=== PATIENT | female | born 1995 | race Caucasian/White ===

== ENCOUNTER 2023-07-21 01:56 | Emergency (ER) | payer MEDICAID, OTHER ==
--- NOTE | 2023-07-21 02:28 | ERPHSYRPT ---
- History of Present Illness Time Seen by Provider: 07/21/23 02:10 Source: patient, family Exam Limitations: no limitations Patient Subjective Stated Complaint: hives all over my body Triage Nursing Assessment: pt ambulated into ER without diff, mother at bedside. Pt c/o hives all over her body which began around 1am. Pt has red, blotchy hives all over: neck, back, chest, abd, arms and legs. Pt ate a raspberry brownie tonight whcih is something she has never eater before; however, has had these items individually and has never been allergic to either item. Pt denies any sob or difficulty breathing. Physician History: This is a 27-year-old white female patient who presents with hives on her scalp neck anterior and posterior torso that began, or at least noticed, approximately 1 AM this morning. The only thing that was different today was at work, approximate 3 PM, the patient did eat some type of raspberry pastry or dessert. She has never been allergic to what she did eat at that time.. At 1 AM this morning she noticed itching on her side and then her back of her torso in front of her torso and she looked in the mirror and there was hives present on her neck and her scalp was itching as well. She has not had any wheezing or difficulty breathing. She does not have any difficulty swallowing. She is not short of breath. She has no chest pain. She has had no nausea or vomiting symptoms. She has never had anything like this before. She has no known allergies to drugs or any other environmental entities. Mom provided independent, additional history. There is been no change in the soaps being used at home. There is been no new pets. Timing/Duration: today Quality: itchy Severity: moderate Location: scalp, face, torso Possible Causes: no cause identified Associated Symptoms: rash Allergies/Adverse Reactions: No Known Drug Allergies Allergy (Unverified 07/21/23 02:15) Home Medications: Acyclovir 400 mg PO DAILY 07/21/23 [History] Hx Tetanus, Diphtheria Vaccination/Date Given: Yes Hx Influenza Vaccination/Date Given: No Hx Pneumococcal Vaccination/Date Given: No Immunizations Up to Date: No Travel Risk - International Travel Have you traveled outside of the country in past 3 weeks: No - Coronavirus Screening Are you exhibiting any of the following symptoms?: No Close contact with a COVID-19 positive Pt in past 14-21 Days: No - Vaccine Status Have you recieved a Covid-19 vaccination: No - Review of Systems Constitutional: No Symptoms Eyes: No Symptoms Ears, Nose, & Throat: No Symptoms Respiratory: No Symptoms Cardiac: No Symptoms Abdominal/Gastrointestinal: No Symptoms Genitourinary Symptoms: No Symptoms Musculoskeletal: No Symptoms Skin: Rash (Hives anterior posterior torso neck and scalp) Neurological: No Symptoms Psychological: No Symptoms Endocrine: No Symptoms Hematologic/Lymphatic: No Symptoms Immunological/Allergic: No Symptoms All Other Systems: Reviewed and Negative - Past Medical History Pertinent Past Medical History: Yes Other Medical History: hsv 2 - Past Surgical History Past Surgical History: No - Social History Smoking Status: Never smoker Exposure to second hand smoke: Yes Drug Use: none Patient Lives Alone: No - Female History Hx Last Menstrual Period: last week Hx Now: No - Nursing Vital Signs Nursing Vital Signs: Initial Vital Signs Temperature 98.6 F 07/21/23 02:03 Pulse Rate 82 07/21/23 02:03 Respiratory Rate 16 07/21/23 02:03 Blood Pressure 157/92 07/21/23 02:03 O2 Sat by Pulse Oximetry 100 07/21/23 02:03 Pain Scale Pain Intensity 0 - Physical Exam General Appearance: no apparent distress, alert, anxiety Eye Exam: PERRL/EOMI, eyes nml inspection Ears, Nose, Throat Exam: normal ENT inspection, moist mucous membranes Neck Exam: normal inspection, non-tender, supple, full range of motion Respiratory Exam: normal breath sounds, lungs clear, airway intact, No chest tenderness, No respiratory distress Cardiovascular Exam: regular rate/rhythm, normal heart sounds, normal peripheral pulses Gastrointestinal/Abdomen Exam: soft, normal bowel sounds, No tenderness Pelvic Exam: not done Rectal Exam: not done Back Exam: normal inspection, normal range of motion, No CVA tenderness, No vertebral tenderness Extremity Exam: normal inspection, normal range of motion, pelvis stable Neurologic Exam: alert, oriented x 3, cooperative, 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 Level of complexity in the workup performed is based on review the patient's past medical history, review of the patient's medication list, review the patient's drug allergy list, history of present illness and physical findings on examination. No laboratory radiographic studies are necessary in this patient. Will provide the patient with 20 mg oral prednisone, 40 mg of oral Pepcid and 50 mg of oral Benadryl. Counseled pt/family regarding: diagnosis, need for follow-up Medical Desision Making - Independent Historian Additional History obtained from: Mother - Diagnostic Testing Diagnostic test were ordered, analyzed, and reviewed by me: No - Risk of complications The pt has a mod risk of morbidity or mortality based on: Need for prescription drug management - Departure Departure Disposition: Home Clinical Impression: Hives, Allergic reaction Condition: Stable Critical Care Time: No Referrals: ALFONSO ARCINIEGA NP [Primary Care Provider] - Follow up/PCP as directed Additional Instructions: Take Benadryl 50 mg orally every 8 hours for the next 4 days. Follow-up with your primary care provider today, 07/21/2023, by phone to make arrangement for follow-up appointment for further evaluation management. Take your other prescription medications as prescribed. Prescriptions: Prednisone 10 mg [Deltasone 10 mg] 10 mg PO TID #12 tablet Famotidine 20 mg [Pepcid 20 MG] 20 mg PO DAILY #5 tablet
[2023-07-21] MEDS ORDERED: BENADRYL 25 MG CAPSULE PO ONE (02:29)
[2023-07-21] MEDS ORDERED: Pepcid 20 MG PO ONE (02:29)
[2023-07-21] MEDS ORDERED: DELTASONE 20 MG PO ONE (02:30)
[2023-07-21] MEDS ORDERED: DELTASONE 20 MG ONE (02:39)
[2023-07-21] MEDS ORDERED: BENADRYL 25 MG CAPSULE ONE (02:39)
[2023-07-21] MEDS ORDERED: Pepcid 20 MG ONE (02:39)
[2023-07-21 02:50] VITALS: TEMP 98.6
[2023-07-21 04:02] VITALS: BP 140/75; PULSE 72; RESP 16; O2SAT 97
== END 2023-07-21 04:11 | disposition home or self-care (01) ==
LOC: ED 01:56
DX: T78.40XA Allergy, unspecified, initial encounter (principal); L50.0 Allergic urticaria; Z79.52 Long term (current) use of systemic steroids; Z79.899 Other long term (current) drug therapy; Z28.310 Unvaccinated for COVID-19
CPT/HCPCS: 99283; A9270-GY

== ENCOUNTER 2023-10-08 11:20 | Emergency (ER) | payer OTHER ==
--- NOTE | 2023-10-08 11:34 | ERPHSYRPT ---
- History of Present Illness Time Seen by Provider: 10/08/23 11:34 Source: patient Exam Limitations: no limitations Physician History: This is a 27-year-old white female patient who was seen at [facility] and diagnosed with tonsillitis. She was evaluated 2 days ago and had negative strep, negative viral studies as well. Patient's symptoms of sore throat and painful swelling began 5 days ago. 2 days ago, patient was prescribed amoxicillin but no other medications. Patient states her symptoms are no better after approximately 3 doses of the antibiotics. She denies chest pain. She denies cough. She denies shortness of breath. She has no abdominal pain. She denies nausea vomiting and diarrhea symptoms. Timing/Duration: day(s) (5), worse Cough Quality/Degree: no cough Possible Cause: occasional episodes Modifying Factors: Improves With: other (Worsens with swallowing) Associated Symptoms: sore throat Allergies/Adverse Reactions: No Known Drug Allergies Allergy (Verified 10/08/23 11:27) Home Medications: Acyclovir 400 mg PO DAILY 07/21/23 [History] Amoxicillin 500 mg PO BID 10/08/23 [History] Hx Tetanus, Diphtheria Vaccination/Date Given: Yes Hx Influenza Vaccination/Date Given: No Hx Pneumococcal Vaccination/Date Given: No Travel Risk - International Travel Have you traveled outside of the country in past 3 weeks: No - Coronavirus Screening Are you exhibiting any of the following symptoms?: No Close contact with a COVID-19 positive Pt in past 14-21 Days: No - Vaccine Status Have you recieved a Covid-19 vaccination: No - Review of Systems Constitutional: No Symptoms Eyes: No Symptoms Ears, Nose, & Throat: Throat Pain Respiratory: No Symptoms Cardiac: No Symptoms Abdominal/Gastrointestinal: No Symptoms Genitourinary Symptoms: No Symptoms Musculoskeletal: No Symptoms Skin: No Symptoms Neurological: No Symptoms Psychological: No Symptoms Endocrine: No Symptoms Hematologic/Lymphatic: No Symptoms Immunological/Allergic: No Symptoms All Other Systems: Reviewed and Negative - Past Medical History Pertinent Past Medical History: Yes Other Medical History: hsv 2 - Past Surgical History Past Surgical History: No - Social History Smoking Status: Never smoker Exposure to second hand smoke: Yes Drug Use: none Patient Lives Alone: No - Physical Exam General Appearance: no apparent distress, alert, anxiety Eye Exam: PERRL/EOMI, eyes nml inspection Ears, Nose, Throat Exam: moist mucous membranes, tonsillar exudate (Bilateral right side worse than left) Neck Exam: normal inspection, non-tender, supple, full range of motion Respiratory Exam: normal breath sounds, lungs clear, airway intact, No chest tenderness, No respiratory distress Cardiovascular Exam: regular rate/rhythm, normal heart sounds, normal peripheral pulses Gastrointestinal/Abdomen Exam: soft, No tenderness Pelvic Exam: not done Rectal Exam: not done Back Exam: normal inspection, normal range of motion, No CVA tenderness, No vertebral tenderness Extremity Exam: normal inspection, normal range of motion, pelvis stable Neurologic Exam: alert, oriented x 3, cooperative, 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 The level of complexity in the workup performed is based on review of the patient's past medical history, review of the patient's medication list, review of the patient's drug allergy list, history of present illness and physical findings on examination. Workup in this patient does not require laboratory radiographic studies. I do not think it is necessary to repeat strep test and viral studies. Patient is already taking amoxicillin. We will provide her with an injection of 1 g of Rocephin intramuscularly as well as 125 mg intramuscular Solu-Medrol injection. We will also send prednisone and hydrocodone elixir prescription remotely to her pharmacy Blood Culture(s) Obtained: No Antibiotics given: Yes Counseled pt/family regarding: diagnosis, need for follow-up Medical Desision Making - Diagnostic Testing Diagnostic test were ordered, analyzed, and reviewed by me: No - Risk of complications The pt has a mod risk of morbidity or mortality based on: Need for prescription drug management - Departure Departure Disposition: Home Clinical Impression: Tonsillitis Condition: Stable Critical Care Time: No Additional Instructions: Drink plenty of cold liquids. May gargle with salt water as discussed. You may also benefit from using hard candy to help keep your throat moistened. Take your amoxicillin/antibiotics as prescribed. Follow-up with your primary care provider for further evaluation and management. Prescriptions: Prednisone 10 mg [Deltasone 10 mg] 10 mg PO TID #12 tablet Hydrocodone/Acetaminophen [Hydrocodone-Acetamn 7.5-325/15] 10 ml PO Q8H PRN #120 ml MDD 30 ml PRN Reason: Cough
[2023-10-08 11:43] VITALS: RESP 18; TEMP 98.7; O2SAT 99
[2023-10-08] MEDS ORDERED: Sterile H2O 10 ml IJ ONE (11:46)
[2023-10-08] MEDS ORDERED: Rocephin 1000 MG INJ ONE (11:46)
[2023-10-08] MEDS ORDERED: solu-MEDROL ONE (11:46)
[2023-10-08] MEDS ORDERED: XYLOCAINE 1% HCL 20 ML MDV ONE (11:46)
[2023-10-08] MEDS: solu-MEDROL 125 MG, Sterile H2O 10 ml 2 ML IM ONE (11:52)
[2023-10-08] MEDS: Rocephin 1000 MG INJ IM ONE (11:53)
[2023-10-08 12:03] VITALS: BP 130/81; PULSE 93
== END 2023-10-08 12:00 | disposition home or self-care (01) ==
LOC: ED 11:20
DX: J03.90 Acute tonsillitis, unspecified (principal); Z79.52 Long term (current) use of systemic steroids; Z79.891 Long term (current) use of opiate analgesic; Z79.899 Other long term (current) drug therapy; Z28.310 Unvaccinated for COVID-19
CPT/HCPCS: 96372; 99283; J0696; J2930

== ENCOUNTER 2023-10-14 22:24 | Emergency (ER) | payer OTHER ==
[2023-10-14 22:30] VITALS: TEMP 99.2
--- NOTE | 2023-10-14 22:34 | ERPHSYRPT ---
- History of Present Illness Time Seen by Provider: 10/14/23 22:33 Exam Limitations: no limitations Physician History: 27-year-old female presents to emergency department for evaluation of intermit tent chest pain. Chest pain started at 9:00 this morning. Patient thought it was GERD. Patient took a Pepcid and it did not improve. She became concerned and presented to our ED. Upon arrival to our ED patient had no active chest pain. No nausea vomiting or diaphoresis. Symptoms been present more mild to moderate in intensity. Patient denies a history of the same. She voices no other complaints or concerns at this time. Portions of this note were created with voice recognition technology. There may be grammatical, spelling, punctuation or sound alike errors Timing/Duration: today Activities at Onset: none Quality: burning Location: substernal Chest Pain Radiation: no radiation Severity of Pain-Max: moderate Severity of Pain-Current: mild Modifying Factors: Improves With: nothing Associated Symptoms: denies symptoms Prior Chest Pain/Cardiac Workup: no prior chest pain Nitro Today/Relief: no nitro taken today Aspirin Treatment Today: no aspirin today Allergies/Adverse Reactions: No Known Drug Allergies Allergy (Verified 10/14/23 22:39) Home Medications: Acyclovir 400 mg PO DAILY 07/21/23 [History] Norgestimate-Ethinyl Estradiol [Sprintec 28 Day Tablet] 1 tab PO DAILY 10/14/23 [History] Hx Tetanus, Diphtheria Vaccination/Date Given: Yes Hx Influenza Vaccination/Date Given: No Hx Pneumococcal Vaccination/Date Given: No Travel Risk - Vaccine Status Have you recieved a Covid-19 vaccination: No - Review of Systems Constitutional: No Symptoms, No Fever, No Chills Eyes: No Symptoms Ears, Nose, & Throat: No Symptoms Respiratory: No Symptoms, No Cough, No Dyspnea Cardiac: No Symptoms, No Chest Pain, No Edema, No Syncope Abdominal/Gastrointestinal: No Symptoms, No Abdominal Pain, No Nausea, No Vomiting, No Diarrhea Genitourinary Symptoms: No Symptoms, No Dysuria Musculoskeletal: No Symptoms, No Back Pain, No Neck Pain Skin: No Symptoms, No Rash Neurological: No Symptoms, No Dizziness, No Focal Weakness, No Sensory Changes Psychological: No Symptoms Endocrine: No Symptoms Hematologic/Lymphatic: No Symptoms Immunological/Allergic: No Symptoms All Other Systems: Reviewed and Negative - Past Medical History Pertinent Past Medical History: Yes Other Medical History: hsv 2 - Past Surgical History Past Surgical History: No - Social History Smoking Status: Never smoker Exposure to second hand smoke: Yes Drug Use: none Patient Lives Alone: No - Nursing Vital Signs Nursing Vital Signs: Initial Vital Signs Temperature 99.2 F 10/14/23 22:29 Pulse Rate 91 H 10/14/23 22:29 Respiratory Rate 17 10/14/23 22:29 Blood Pressure 143/106 10/14/23 22:29 O2 Sat by Pulse Oximetry 99 10/14/23 22:29 Pain Scale Pain Intensity 0 - Physical Exam General Appearance: no apparent distress, alert Eye Exam: PERRL/EOMI, eyes nml inspection Ears, Nose, Throat Exam: normal ENT inspection, moist mucous membranes Neck Exam: normal inspection, non-tender, supple, full range of motion Respiratory Exam: normal breath sounds, lungs clear, airway intact, No respiratory distress Cardiovascular Exam: regular rate/rhythm, normal heart sounds, normal peripheral pulses Gastrointestinal/Abdomen Exam: soft, No tenderness, No mass Back Exam: normal inspection, No CVA tenderness, No vertebral tenderness Extremity Exam: normal inspection, normal range of motion Neurologic Exam: alert, oriented x 3, cooperative, normal mood/affect, sensation nml, No motor deficits Skin Exam: normal color, warm, dry SpO2 Interpretation: normal SpO2: 99 O2 Delivery: Room Air - Course Nursing assessment & vital signs reviewed: Yes EKG Interpreted by Me: RATE (73), Sinus Rhythm, NORMAL AXIS, NORMAL INTERVALS Ordered Tests: Active Orders 24 hr Category Date Time Status Stationary [employer]man STAT Care 10/14/23 22:32 Active EKG-ER Only STAT Care 10/14/23 22:31 Active IV Insertion STAT Care 10/14/23 22:31 Active Pulse Oximetry (ED) STAT Care 10/14/23 22:31 Active CHEST WITH CONTRAST [CT] Stat Exams 10/14/23 23:16 Completed CBC W DIFF Stat Lab 10/14/23 22:45 Completed CMP Stat Lab 10/14/23 22:45 Completed D-DIMER QUANTITATIVE Stat Lab 10/14/23 22:45 Completed HCG QUALITATIVE, URINE Stat Lab 10/14/23 22:34 Completed TROPONIN Q4H Lab 10/14/23 22:45 Completed TROPONIN Q4H Lab 10/15/23 01:10 Completed TROPONIN Q4H Lab 10/15/23 06:45 Ordered UA W/RFX UR CULTURE Stat Lab 10/14/23 22:34 Completed Medication Summary Discontinued Medications Generic Name Dose Route Start Last Admin Trade Name Bonnie PRN Reason Stop Dose Admin Al Hydrox/Mg Hydrox/Simethicone Confirm 10/15/23 01:31 Mag Hydrox/Al Hydrox/Simeth 30 Ml Udcup Administered 10/15/23 01:32 Dose 30 ml .ROUTE .STK-MED ONE Lidocaine HCl Confirm 10/15/23 01:31 Lidocaine Hcl 2% Viscous 15 Ml Udcup Administered 10/15/23 01:32 Dose 15 ml .ROUTE .STK-MED ONE Magnesium Hydroxide 45 ml 10/15/23 01:27 10/15/23 01:34 Mag Hydrx/Alum Hyd/Simeth/Lido 45 Ml Bottle PO 10/15/23 01:28 45 ml STAT ONE Administration Pantoprazole Sodium 40 mg 10/15/23 01:27 10/15/23 01:35 Pantoprazole 40 Mg Vial IV 10/15/23 01:28 40 mg STAT ONE Administration Pantoprazole Sodium Confirm 10/15/23 01:31 Pantoprazole 40 Mg Vial Administered 10/15/23 01:32 Dose 40 mg IV .STK-MED ONE Lab/Rad Data: Laboratory Result Diagrams 10/14/23 22:45 10/14/23 22:45 Laboratory Results 10/15/23 10/14/23 10/14/23 Range/Units 01:10 22:45 22:45 WBC (4.0-10.5) x10^3/uL RBC (4.1-5.4) x10^6/uL Hgb (12.0-16.0) g/dL Hct (35-47) % MCV (78-100) fL MCH (26-32) pg MCHC (32-36) g/dL RDW (11.5-14.0) % Plt Count (150-450) x10^3/uL MPV (7.5-11.0) fL Gran % (36.0-66.0) % Immature Gran % (Auto) (0.00-0.4) % Nucleat RBC Rel Count (0.00-0.1) % Eos # (Auto) (0-0.5) x10^3/uL Immature Gran # (Auto) (0.00-0.03) x10^3u/L Absolute Lymphs (auto) (1.0-4.6) x10^3/uL Absolute Monos (auto) (0.0-1.3) x10^3/uL Absolute Nucleated RBC (0.00-0.01) x10^3u/L Lymphocytes % (24.0-44.0) % Monocytes % (0.0-12.0) % Eosinophils % (0.00-5.0) % Basophils % (0.0-0.4) % Absolute Granulocytes (1.4-6.9) x10^3/uL Basophils # (0-0.4) x10^3/uL D-Dimer 1.81 H* (0.0-0.50) mg/L Sodium (137-145) mmol/L Potassium (3.5-5.1) mmol/L Chloride (98-107) mmol/L Carbon Dioxide (22-30) mmol/L Anion Gap (5-15) MEQ/L BUN (7-17) mg/dL Creatinine (0.52-1.04) mg/dL Estimated GFR ML/MIN Glucose (74-106) mg/dL Calcium (8.4-10.2) mg/dL Total Bilirubin (0.2-1.3) mg/dL AST (14-36) U/L ALT (0-35) U/L Alkaline Phosphatase (38-126) U/L Troponin I < 0.012 < 0.012 (0.000-0.034) ng/mL Serum Total Protein (6.3-8.2) g/dL Albumin (3.5-5.0) g/dL Urine Color (Yellow) Urine Appearance (Clear) Urine pH (4.6-8.0) Ur Specific Carlton (1.005-1.030) Urine Protein (Negative) Urine Glucose (UA) (Negative) mg/dL Urine Ketones (Negative) Urine Blood (Negative) Urine Nitrite (Negative) Urine Bilirubin (Negative) Urine Urobilinogen (0.2) mg/dL Ur Leukocyte Esterase (Negative) U Hyaline Cast (Auto) (0-2) /LPF Urine Microscopic RBC (0-5) /HPF Urine Microscopic WBC (0-5) /HPF Ur Epithelial Cells (None Seen) /HPF Urine Bacteria (None Seen) /HPF Urine Culture Reflexed (NO) Urine HCG, Qual (NEGATIVE) Slides for Path Review 10/14/23 10/14/23 10/14/23 Range/Units 22:45 22:45 22:34 WBC 9.8 (4.0-10.5) x10^3/uL RBC 4.93 (4.1-5.4) x10^6/uL Hgb 14.8 (12.0-16.0) g/dL Hct 44.1 (35-47) % MCV 89.5 (78-100) fL MCH 30.0 (26-32) pg MCHC 33.6 (32-36) g/dL RDW 12.3 (11.5-14.0) % Plt Count 424 (150-450) x10^3/uL MPV 9.4 (7.5-11.0) fL Gran % 31.1 L (36.0-66.0) % Immature Gran % (Auto) 0.8 H (0.00-0.4) % Nucleat RBC Rel Count 0.0 (0.00-0.1) % Eos # (Auto) 0.23 (0-0.5) x10^3/uL Immature Gran # (Auto) 0.08 H (0.00-0.03) x10^3u/L Absolute Lymphs (auto) 5.60 H (1.0-4.6) x10^3/uL Absolute Monos (auto) 0.74 (0.0-1.3) x10^3/uL Absolute Nucleated RBC 0.00 (0.00-0.01) x10^3u/L Lymphocytes % 57.4 H (24.0-44.0) % Monocytes % 7.6 (0.0-12.0) % Eosinophils % 2.4 (0.00-5.0) % Basophils % 0.7 (0.0-0.4) % Absolute Granulocytes 3.03 (1.4-6.9) x10^3/uL Basophils # 0.07 (0-0.4) x10^3/uL D-Dimer (0.0-0.50) mg/L Sodium 138 (137-145) mmol/L Potassium 3.8 (3.5-5.1) mmol/L Chloride 99 (98-107) mmol/L Carbon Dioxide 28 (22-30) mmol/L Anion Gap 14.1 (5-15) MEQ/L BUN 13 (7-17) mg/dL Creatinine 0.78 (0.52-1.04) mg/dL Estimated GFR 108.0 ML/MIN Glucose 112 H (74-106) mg/dL Calcium 9.7 (8.4-10.2) mg/dL Total Bilirubin 0.60 (0.2-1.3) mg/dL AST 35 (14-36) U/L ALT 87 H (0-35) U/L Alkaline Phosphatase 105 (38-126) U/L Troponin I (0.000-0.034) ng/mL Serum Total Protein 8.2 (6.3-8.2) g/dL Albumin 4.6 (3.5-5.0) g/dL Urine Color (Yellow) Urine Appearance (Clear) Urine pH (4.6-8.0) Ur Specific Carlton (1.005-1.030) Urine Protein (Negative) Urine Glucose (UA) (Negative) mg/dL Urine Ketones (Negative) Urine Blood (Negative) Urine Nitrite (Negative) Urine Bilirubin (Negative) Urine Urobilinogen (0.2) mg/dL Ur Leukocyte Esterase (Negative) U Hyaline Cast (Auto) (0-2) /LPF Urine Microscopic RBC (0-5) /HPF Urine Microscopic WBC (0-5) /HPF Ur Epithelial Cells (None Seen) /HPF Urine Bacteria (None Seen) /HPF Urine Culture Reflexed (NO) Urine HCG, Qual NEGATIVE (NEGATIVE) Slides for Path Review YES 10/14/23 Range/Units 22:34 WBC (4.0-10.5) x10^3/uL RBC (4.1-5.4) x10^6/uL Hgb (12.0-16.0) g/dL Hct (35-47) % MCV (78-100) fL MCH (26-32) pg MCHC (32-36) g/dL RDW (11.5-14.0) % Plt Count (150-450) x10^3/uL MPV (7.5-11.0) fL Gran % (36.0-66.0) % Immature Gran % (Auto) (0.00-0.4) % Nucleat RBC Rel Count (0.00-0.1) % Eos # (Auto) (0-0.5) x10^3/uL Immature Gran # (Auto) (0.00-0.03) x10^3u/L Absolute Lymphs (auto) (1.0-4.6) x10^3/uL Absolute Monos (auto) (0.0-1.3) x10^3/uL Absolute Nucleated RBC (0.00-0.01) x10^3u/L Lymphocytes % (24.0-44.0) % Monocytes % (0.0-12.0) % Eosinophils % (0.00-5.0) % Basophils % (0.0-0.4) % Absolute Granulocytes (1.4-6.9) x10^3/uL Basophils # (0-0.4) x10^3/uL D-Dimer (0.0-0.50) mg/L Sodium (137-145) mmol/L Potassium (3.5-5.1) mmol/L Chloride (98-107) mmol/L Carbon Dioxide (22-30) mmol/L Anion Gap (5-15) MEQ/L BUN (7-17) mg/dL Creatinine (0.52-1.04) mg/dL Estimated GFR ML/MIN Glucose (74-106) mg/dL Calcium (8.4-10.2) mg/dL Total Bilirubin (0.2-1.3) mg/dL AST (14-36) U/L ALT (0-35) U/L Alkaline Phosphatase (38-126) U/L Troponin I (0.000-0.034) ng/mL Serum Total Protein (6.3-8.2) g/dL Albumin (3.5-5.0) g/dL Urine Color Yellow (Yellow) Urine Appearance Clear (Clear) Urine pH 6.5 (4.6-8.0) Ur Specific Carlton 1.010 (1.005-1.030) Urine Protein Negative (Negative) Urine Glucose (UA) Negative (Negative) mg/dL Urine Ketones Negative (Negative) Urine Blood Moderate A (Negative) Urine Nitrite Negative (Negative) Urine Bilirubin Negative (Negative) Urine Urobilinogen 0.2 (0.2) mg/dL Ur Leukocyte Esterase Negative (Negative) U Hyaline Cast (Auto) NONE SEEN (0-2) /LPF Urine Microscopic RBC 51-100 A (0-5) /HPF Urine Microscopic WBC 0-2 (0-5) /HPF Ur Epithelial Cells None Seen (None Seen) /HPF Urine Bacteria None Seen (None Seen) /HPF Urine Culture Reflexed NO (NO) Urine HCG, Qual (NEGATIVE) Slides for Path Review - Progress Progress: improved Air Movement: good Progress Note: Some hematuria observed in urinalysis has however patient currently on her menstrual cycle this is likely contamination. Otherwise no UTI observed on today's urinalysis. 10/15/23 01:24 Heart score 0 27-year-old female presents to our ED for evaluation of intermittent substernal chest pain. Patient has no significant cardiac risk factors. Physical exam nonremarkable. No active chest pain upon arrival. D-dimer positive. Patient c urrently on her menstrual period. CTA chest negative. There are some hematuria in her urine however this is likely contamination from menstrual flow. Complexity problem addressed is moderate acute complicated No critical care time Complex of data reviewed and analyzed is moderate. Test ordered test reviewed. Results analyzed and correlated clinically with history and physical examination . Risk of complication and or risk morbidity/mortality of patient management is moderate. A prescription for Protonix forwarded to patient's pharmacy Vital stable. Time spent to discharge patient is approximately 20 minutes. Plan of care established for shared decision making. No social determinants of health present impede follow-up. Patient reassessed. She remains pain-free. She agrees to follow-up with primary care doctor within 48 hours for evaluation. Portions of this note were created with voice recognition technology. There may be grammatical, spelling, punctuation or sound alike errors 10/15/23 02:06 Blood Culture(s) Obtained: No Antibiotics given: No Counseled pt/family regarding: lab results, diagnosis, need for follow-up, rad results - Departure Departure Disposition: Home Clinical Impression: Chest pain, Lung nodule Condition: Stable Critical Care Time: No Referrals: PHILLY BERNAL, [employer]PER[employer] MANAGER [Primary Care Provider] - Follow up/PCP as directed Additional Instructions: Please follow-up with your primary care doctor within 48 hours for evaluation. Discharge/Care Plan DELMER JULIEN was seen on 10/15/23 in the Emergency Room. The patient was counseled regarding Diagnosis,Lab results, Imaging studies, need for follow up and when to return to the Emergency Room. Prescriptions given: Discharge Note I have spoken with the patient and/or caregivers. I have explained the patient's condition, diagnosis and treatment plan based on the information available to me at this time. I have answered the patient's and/or caregiver's questions and addressed any concerns. The patient and/or caregivers have as good understanding of the patient's diagnosis, condition and treatment plan as can be expected at this point. The vital signs have been stable. The patient's condition is stable and appropriate for discharge from the emergency department. The patient will pursue further outpatient evaluation with the primary care physician or other designated or consulting physician as outlined in the dis charge instructions. The patient and/or caregivers are agreeable to this plan of care and follow-up instructions have been explained in detail. The patient and/or caregivers have received these instruction. The patient/and or caregivers are aware that any significant change in condition or worsening of symptoms should prompt an immediate return to this or the closest emergency department or call 911. Prescriptions: PANTOPRAZOLE 40 mg Tablet [Protonix 40MG Tablet] 40 mg PO DAILY 14 Days #14 tab
[2023-10-14 22:40] LABS: HCG URINE TEST NEGATIVE (NEGATIVE)
[2023-10-14 22:44] LABS: Appearance Clear (Clear); Bacteria None Seen /HPF (None Seen); Bilirubin Negative (Negative); Blood Moderate (Negative); Epithelial Cells None Seen /HPF (None Seen); Glucose, Urine Negative (Negative); Hyaline Casts NONE SEEN /LPF (0-2); Ketones Negative (Negative); Leukocyte Esterase Negative (Negative); Nitrite Negative (Negative); Ph 6.5 (4.6-8.0); Protein,Urine Dip Negative (Negative); RBC 51-100 /HPF (0-5); Urobilinogen 0.2 mg/dL (0.2); WBC 0-2 /HPF (0-5)
[2023-10-14 22:51] LABS: ADD URINE CULTURE? NO (NO)
[2023-10-14 22:51] LABS: Absolute Neutrophil Ct (ANC) 3.03 x10^3/uL (1.4-6.9); BASOPHIL % 0.7 % (0.0-0.4); Basophil (Absolute #) 0.07 x10^3/uL (0-0.4); Eosinophil % 2.4 % (0.00-5.0); Eosinophil (Absolute #) 0.23 x10^3/uL (0-0.5); Hematocrit 44.1 % (35-47); Hemoglobin 14.8 g/dL (12.0-16.0); IMMATURE GRAN # 0.08 x10^3u/L (0.00-0.03); IMMATURE GRAN % 0.8 % (0.00-0.4); Lymphocytes % 57.4 % (24.0-44.0); Mean Cell Volume 89.5 fL (78-100); Mean Corpuscular Hgb Concent. 33.6 g/dL (32-36); Mean Platelet Volume 9.4 fL (7.5-11.0); Monocyte (Absolute #) 0.74 x10^3/uL (0.0-1.3); Monocytes % 7.6 % (0.0-12.0); Neutrophil % 31.1 % (36.0-66.0); Platelet Count 424 x10^3/uL (150-450); Red Blood Count 4.93 x10^6/uL (4.1-5.4); Red Cell Distribution Width 12.3 % (11.5-14.0); White Blood Count 9.8 x10^3/uL (4.0-10.5)
[2023-10-14 23:06] LABS: ALBUMIN 4.6 g/dL (3.5-5.0); ANION GAP 14.1 MEQ/L (5-15); BILIRUBIN,TOTAL 0.6 mg/dL (0.2-1.3); Calcium 9.7 mg/dL (8.4-10.2); Creatinine 1 0.78 mg/dL (0.52-1.04); Potassium 3.8 mmol/L (3.5-5.1); Total Protein 8.2 g/dL (6.3-8.2)
--- NOTE | 2023-10-15 00:39 | XRAY ---
CLINICAL HISTORY: pain TECHNIQUE: Contiguous axial CT images of the chest were acquired with intravenous contrast following PE protocol. Coronal and sagittal reconstructions were also obtained. COMPARISON: None. FINDINGS: The main pulmonary trunk, right and left pulmonary arteries with the ascending and descending branches are normal. The segmental branches are normal in caliber and show good contrast opacification with no evidence of filling defect/thrombosis. The aortic arch and visualized ascending aorta and descending aorta are normal. 6mm and 1.5mm calcified nodules are seen in apical segment of the right upper lobe. Bilateral lung smith are normal in translucency and markings otherwise. No significant mediastinal lymphadenopathy. No evidence of pleural/pericardial effusion. Heart size appears normal. No significant bony abnormality is detected. Scanned upper abdomen appears unremarkable. IMPRESSION: 1. Unremarkable CT pulmonary angiography, no evidence of acute thromboembolism 2. Calcified nodules in right apex, no follow up is required. Electronically Signed by: Mario Devine MD. (10/15/2023 00:35:03 EST)
[2023-10-15 01:29] VITALS: O2SAT 99
[2023-10-15 01:29] LABS: Slide Review 1 YES
[2023-10-15] MEDS ORDERED: XYLOCAINE VISCOUS 2% 15 ML CUP ONE (01:31)
[2023-10-15] MEDS ORDERED: MAALOX ES 30 ML UNIT DOSE ONE (01:31)
[2023-10-15] MEDS ORDERED: PROTONIX 40 MG IV IV ONE (01:31)
[2023-10-15] MEDS: GI COCKTAIL 45 ML (Maalox/Lidocaine) PO ONE (01:34)
[2023-10-15] MEDS: PROTONIX 40 MG IV IV ONE (01:35)
[2023-10-15 02:13] VITALS: BP 115/77; PULSE 69; RESP 18
== END 2023-10-15 02:19 | disposition home or self-care (01) ==
LOC: ED 22:24
DX: R07.9 Chest pain, unspecified (principal); R91.1 Solitary pulmonary nodule; Z79.899 Other long term (current) drug therapy; Z28.310 Unvaccinated for COVID-19
CPT/HCPCS: 36000; 36415; 71260; 80053; 81001; 81025; 84484; 85025; 85379; 93005; 93041; 94760; 96374; 99284; A9270-GY